=== PATIENT | female | born 1950 | race Caucasian/White ===

== ENCOUNTER 2018-10-15 18:48 | Observation (INO) | payer OTHER ==
--- NOTE | 2018-10-15 19:28 | EDPHY ---
H & P Stated Complaint: c/o SOB/HTN x 3 days - arrived Friday from [place] Time Seen by Provider: 10/15/18 18:54 HPI/ROS: HPI The patient presents with shortness of breath which she feels most prominently upon exertion for the last 3 days, upon arriving to [place] from [place]. The patient has had dyspnea on exertion over the last several weeks which has been mild though it became worse when she traveled to [place] about 4 days ago. She noticed previously then when she went up a flight of stairs she was more tired than usual. About 1 week ago she saw her primary care doctor in [place]. She had basic laboratory testing done and was diagnosed with iron deficiency anemia. She was told to be on iron supplementation. She is not sure why she is iron deficient. She does not have any vaginal bleeding, dark or bloody stools. She had a normal colonoscopy in June of 2017 Over the last 3 days she has noticed dyspnea on exertion when simply walking across a room. She does not have any shortness of breath while sleeping. She is able to lie flat at night. She does not have any lower extremity edema. She does not have any chest pain, cough. She has no prior history of similar outside of this episode. She has been checking her blood pressure and has noticed that she is getting elevated readings with systolic of about 180 for the last 2-3 days. She takes metoprolol daily and clonidine as needed. She has been taking both of these. She does note that when she takes clonidine her blood pressure improves.. REVIEW OF SYSTEMS 10 systems were reviewed and negative with the exception of the elements mentioned in the history of present illness. PMHx: Hypertension, recent diagnosis of iron deficiency anemia, etiology unclear Soc Hx: Visiting from [place], lives in [place] primarily though comes to [place] frequently because her daughter lives here and eventually she will move here PHYSICAL General Appearance: Alert, no distress Eyes: Pupils equal and round no pallor or injection ENT, Mouth: Mucous membranes moist Respiratory: There are no retractions, lungs are clear to auscultation Cardiovascular: Regular rate and rhythm Gastrointestinal: Abdomen is soft and non-tender, no masses, bowel sounds normal Neurological: A&O, moves all extremities Skin: Warm and dry, no rashes Musculoskeletal: Neck is supple non tender Extremities: symmetrical, full range of motion Psychiatric: Patient is oriented X 3, there is no agitation Source: Patient Exam Limitations: No limitations - Personal History Current Tetanus Diphtheria and Acellular Pertussis (TDAP): Yes - Medical/Surgical History Hx Asthma: Yes Other PMH: HTN/TIA- 3yrs ago/ Hyperthyroid/Hyperlipids/ Hyst/ Bladder sling/ Hip surg/ Knee surg - Social History Smoking Status: Never smoked Constitutional: Initial Vital Signs Temperature (C) 36.6 C 10/15/18 18:56 Heart Rate 60 10/15/18 18:56 Respiratory Rate 18 10/15/18 18:56 Blood Pressure 145/45 H 10/15/18 18:56 O2 Sat (%) 93 10/15/18 18:56 O2 Delivery Mode Room Air Allergies/Adverse Reactions: No Known Allergies Allergy (Unverified 10/15/18 18:56) Home Medications: Medication Instructions Recorded Pt Does Not Know 10/15/18 Medical Decision Making - Diagnostics EKG Interpretation: EKG: Complete interpretation has been separately recorded in the [email or web address] archive. Summary impression: Normal sinus rhythm Imaging Results: Imaging Impressions Chest X-Ray 10/15/18 19:24 Impression: 1. Bronchitis and suspected underlying minimal interstitial lung disease. 2. Moderate hiatal hernia. Imaging: I viewed and interpreted images myself Differential Diagnosis: This is a 67-year-old female with hypertension, recent diagnosis of iron deficiency anemia about 1 week ago by her primary care doctor in [place], presents with 3 days of dyspnea on exertion. She does not have any chest pain, lower extremity edema, orthopnea, PND. She does not have any unilateral leg swelling, pleuritic chest pain. She does not have any cough or fever. She does not have any dizziness or lightheadedness. Here, blood pressure is elevated, remainder of exam is unremarkable. EKG shows no signs of ST segment elevation. Basic labs were checked. Patient was given a dose of clonidine. Differential diagnosis includes symptomatic anemia made worse by altitude, pulmonary embolism, CHF with acute decompensation, pneumonia, pneumothorax. In the emergency department, patient's blood pressure improved with clonidine. She had no symptoms at rest. Labs revealed microcytic anemia consistent with iron deficiency anemia. I discussed this with her and she believes a week ago when she had her blood work performed her hemoglobin was 8. This does not represent a significant drop. She denies any dark or bloody stools on repeat questioning. I have discussed these findings with her. Initially she was reluctant to be admitted to the hospital, however after speaking with her family she agrees. I have not ordered a type and cross yet as it will have to be sent to [facility] via manager flight and will likely be more efficient for this to be done once she arrives. I consulted with the hospitalist access control specialist Dr. Bustillo who accepts the patient for admission. The EMTALA form has been completed. - Data Points Laboratory Results: Laboratory Results 10/15/18 19:11 10/15/18 10/15/18 10/15/18 19:30 19:29 19:11 WBC 7.32 10^3/uL 10^3/uL (3.80-9.50) RBC 3.40 10^6/uL L 10^6/uL (4.18-5.33) Hgb 7.6 g/dL L g/dL (12.6-16.3) Hct 25.8 % L % (38.0-47.0) MCV 75.9 fL L fL (81.5-99.8) MCH 22.4 pg L pg (27.9-34.1) MCHC 29.5 g/dL L g/dL (32.4-36.7) RDW 20.1 % H % (11.5-15.2) Plt Count 376 10^3/uL 10^3/uL (150-400) MPV 10.9 fL fL (8.7-11.7) Neut % (Auto) 54.9 % % (39.3-74.2) Lymph % (Auto) 25.4 % % (15.0-45.0) [place] % (Auto) 10.9 % % (4.5-13.0) Eos % (Auto) 7.5 % % (0.6-7.6) Baso % (Auto) 1.0 % % (0.3-1.7) Nucleat RBC Rel Count 0.0 % % (0.0-0.2) Absolute Neuts (auto) 4.02 10^3/uL 10^3/uL (1.70-6.50) Absolute Lymphs (auto) 1.86 10^3/uL 10^3/uL (1.00-3.00) Absolute Monos (auto) 0.80 10^3/uL 10^3/uL (0.30-0.80) Absolute Eos (auto) 0.55 10^3/uL H 10^3/uL (0.03-0.40) Absolute Basos (auto) 0.07 10^3/uL 10^3/uL (0.02-0.10) Absolute Nucleated RBC 0.00 10^3/uL 10^3/uL (0-0.01) Immature Gran % 0.3 % % (0.0-1.1) Immature Gran # 0.02 10^3/uL 10^3/uL (0.00-0.10) POC Sodium 142 mEq/L mEq/L (135-145) POC Potassium 3.9 mEq/L mEq/L (3.3-5.0) POC Chloride 110.0 mEq/L mEq/L (97-110) POC Total CO2 24 mEq/L mEq/L (22-31) POC BUN 14 mg/dL mg/dL (7-23) POC Creatinine 1.0 mg/dL mg/dL (0.6-1.0) POC Glucose 87 mg/dL mg/dL (70-100) POC Calcium 9.2 mg/dL mg/dL (8.5-10.4) POC Total Bilirubin 0.4 mg/dL mg/dL (0.1-1.4) POC AST 30 IU/L IU/L (14-46) POC ALT 40 IU/L IU/L (9-52) POC Alk Phosphatase 102 IU/L IU/L (38-126) POC Troponin I 0.01 ng/mL ng/mL (0.00-0.08) NT-Pro-B Natriuret Pep POC Total Protein 6.1 g/dL L g/dL (6.3-8.2) POC Albumin 3.6 g/dL g/dL (3.5-5.0) 10/15/18 19:11 WBC RBC Hgb Hct MCV MCH MCHC RDW Plt Count MPV Neut % (Auto) Lymph % (Auto) [place] % (Auto) Eos % (Auto) Baso % (Auto) Nucleat RBC Rel Count Absolute Neuts (auto) Absolute Lymphs (auto) Absolute Monos (auto) Absolute Eos (auto) Absolute Basos (auto) Absolute Nucleated RBC Immature Gran % Immature Gran # POC Sodium POC Potassium POC Chloride POC Total CO2 POC BUN POC Creatinine POC Glucose POC Calcium POC Total Bilirubin POC AST POC ALT POC Alk Phosphatase POC Troponin I NT-Pro-B Natriuret Pep 425 pg/mL H pg/mL (0-125) POC Total Protein POC Albumin Medications Given: Discontinued Medications Clonidine (Catapres) 0.1 mg PO EDNOW ONE Stop: 10/15/18 19:29 Last Admin: 10/15/18 19:36 Dose: 0.1 mg Point of Care Test Results: Chemistry 10/15/18 10/15/18 19:30 19:29 POC Sodium 142 mEq/L mEq/L (135-145) POC Potassium 3.9 mEq/L mEq/L (3.3-5.0) POC Chloride 110.0 mEq/L mEq/L (97-110) POC Total CO2 24 mEq/L mEq/L (22-31) POC BUN 14 mg/dL mg/dL (7-23) POC Creatinine 1.0 mg/dL mg/dL (0.6-1.0) POC Glucose 87 mg/dL mg/dL (70-100) POC Calcium 9.2 mg/dL mg/dL (8.5-10.4) POC Total Bilirubin 0.4 mg/dL mg/dL (0.1-1.4) POC AST 30 IU/L IU/L (14-46) POC ALT 40 IU/L IU/L (9-52) POC Alk Phosphatase 102 IU/L IU/L (38-126) POC Troponin I 0.01 ng/mL ng/mL (0.00-0.08) POC Total Protein 6.1 g/dL L g/dL (6.3-8.2) POC Albumin 3.6 g/dL g/dL (3.5-5.0) D-Dimer D-Dimer Collection Date 10/15/18 D-Dimer Collection Time 19:19 D-Dimer (ng/ml) 178 Departure - Departure Disposition: [facility] Clinical Impression: Symptomatic anemia Condition: Fair Instructions: Iron Deficiency Anemia (ED)
[2018-10-15 20:13] LABS: PLATELET COUNT 376 10^3/uL (150-400)
[2018-10-15] MEDS ORDERED: ACETAMINOPHEN 325 MG TAB PO PRN (22:46)
[2018-10-15] MEDS ORDERED: LORazepam 0.5 MG TAB PO PRN (22:46)
[2018-10-15] MEDS ORDERED: ONDANSETRON 4 MG/2 ML VIAL IVP PRN (22:46)
[2018-10-15] MEDS ORDERED: ONDANSETRON DISINTEGRATING 4 MG TAB PO PRN (22:46)
[2018-10-15] MEDS ORDERED: diphenhydrAMINE 25 MG CAP PO PRN (22:46)
[2018-10-15] MEDS ORDERED: hydrALAZINE 10 MG TAB PO PRN (22:51)
[2018-10-15] MEDS ORDERED: NS 1,000 ML IV SCH (23:00)
--- NOTE | 2018-10-15 23:54 | PDGENHP ---
History and Physical - Chief Complaint dyspnea - History of Present Illness Source-patient provides history appears reliable. EMR was reviewed and case discussed with accepting hospitalist. HPI - is a very pleasant 67-year-old female with past medical history significant for HTN, hypothyroidism, HLD and a recent diagnosis of iron deficiency anemia who presents emergency department with complaints of significant dyspnea on exertion. Patient reports that she has been experiencing symptoms over the last several weeks. She is here visiting from [place]. She and her do have a home in his the [place] area as well as here in [place]. Patient reports that her PCP diagnosed with iron deficiency anemia and advised her to take iron supplementation on a daily basis with which patient has been taking intermittently. Patient denies any chest pain but she has had acutely worsened dyspnea on exertion since arrival to [place]. She reports that generally when she does visit takes a few days for her to acclimate however her dyspnea has been worse than ever. She states that she had a normal colonoscopy 2016. She denies any orthopnea, lower extremity edema or PND. Patient notes that she has had a normal echocardiogram within the last year. She has a positive family history for colon cancer (mother) but denies any observation of melena or hematochezia. Patient without any history of peptic ulcer disease and no abdominal pain. Patient without any recent illnesses. Additionally patient has been noting increasing blood pressures over the last several days since her arrival. She recently had her metoprolol changed to 50 mg twice daily which she was previously taking it daily. She also has clonidine available p.r.n. She denies any chest pain or palpitations. History Information - Allergies/Home Medication List Allergies/Adverse Reactions: No Known Allergies Allergy (Unverified 10/15/18 18:56) Home Medications: Aspirin 10/15/18 [Last Taken Unknown] Clonidine 10/15/18 [Last Taken Unknown] Metoprolol Succinate 10/15/18 [Last Taken Unknown] Synthroid 10/15/18 [Last Taken Unknown] Wellbutrin Sr 10/15/18 [Last Taken Unknown] Zoloft 50mg (*) 10/15/18 [Last Taken Unknown] I have personally reviewed and updated: family history, medical history, social history, surgical history - Past Medical History Additional medical history: Iron deficiency anemia. HLD. HTN. History TIA 3 years ago. Hypothyroidism on levothyroxine. - Surgical History Additional surgical history: Hysterectomy with BSO and bladder sling. Right hip tendon repair. Left knee arthroscopy. Colonoscopy 2017 reported normal. - Family History Additional family history: Colon cancer - mother was diagnosed age 86 now . No family history of anemia or blood dyscrasias. - Social History Smoking Status: Never smoked Alcohol Use: None Drug Use: None Additional social history: Patient is and lives with her most of the time in [place] however they do have a home here in [place]. Their daughter lives locally and patient has friends with whom she is currently visiting. Cor status is limited patient does not want compressions or intubation but amenable to shock and IV medications. Review of Systems Review of Systems: ROS: 10pt was reviewed & negative except for what was stated in HPI & below Constitutional: Reports: no symptoms EENMT: Reports: no symptoms Cardiac: Denies: chest pain, edema, palpitations Respiratory: Reports: shortness of breath (Dyspnea on exertion). Denies: cough , orthopnea Gastrointestinal: Reports: no symptoms. Denies: black stools, rectal bleeding Genitourinary: Reports: no symptoms Muscolosketal: Reports: no symptoms Skin: Reports: no symptoms Neurological: Reports: no symptoms Hematologic/Lymphatic: Reports: anemia. Denies: easy bleeding, easy bruising Physical Exam Physical Exam: Selected Entries 10/15/18 18:56 Blood Pressure Automatic Method Heart Rate 60 Respiratory 18 Rate O2 Sat (%) 93 Temperature (C) 36.6 C Blood Pressure 145/45 H Mean Arterial 78 Pressure (MAP) O2 Delivery Room Air Mode Temperature Oral Source Temp Pulse Resp BP Pulse Ox 36.4 C 58 L 16 153/86 H 93 10/15/18 22:26 10/15/18 22:26 10/15/18 22:26 10/15/18 22:26 10/15/18 22:26 Constitutional: no apparent distress, obese, other (NAD. Pleasant adult female is lying quietly in bed. Appears pale.), No chronically ill appearing Eyes: PERRL, anicteric sclera, EOMI, No scleral injection Ears, Nose, Mouth, Throat: moist mucous membranes, other (No nasal discharge. No thyromegaly.), No poor dentition Cardiovascular: regular rate and rhythym, no murmur, rub, or gallop, pulses symmetric bilaterally, edema (2+ pitting edema on lower extremities bilaterally. No edema in the feet.) Peripheral Pulses: 2+: dorsalis-pedis (R), dorsalis-pedis (L) Respiratory: no respiratory distress, no rales or rhonchi, clear to auscultation , inspiratory crackles (Occasional crackle Bibasilarly.), No expiratory wheeze , No respiratory distress Gastrointestinal: normoactive bowel sounds, soft, non-tender abdomen, other ( Obese abdomen), No hepatosplenomegally, No distension Genitourinary: no bladder tenderness, No houser in urethra Skin: warm, no rashes or abrasions, other ([place]) Musculoskeletal: full muscle strength, other (Moves all extremities), No generalized weakness Neurologic: AAOx3, sensation intact bilaterally, other (Grossly nonfocal exam.) , No facial droop Psychiatric: interacting appropriately, not anxious, not encephalopathic, thought process linear Lymph, Heme, Immunologic: No ecchymoses, No petechiae Lab Data & Imaging Review 10/15/18 19:11 WBC 7.32 10^3/uL (3.80-9.50) 10/15/18 19:11 RBC 3.40 10^6/uL (4.18-5.33) L 10/15/18 19:11 Hgb 7.6 g/dL (12.6-16.3) L 10/15/18 19:11 Hct 25.8 % (38.0-47.0) L 10/15/18 19:11 MCV 75.9 fL (81.5-99.8) L 10/15/18 19:11 MCH 22.4 pg (27.9-34.1) L 10/15/18 19:11 MCHC 29.5 g/dL (32.4-36.7) L 10/15/18 19:11 RDW 20.1 % (11.5-15.2) H 10/15/18 19:11 Plt Count 376 10^3/uL (150-400) 10/15/18 19:11 MPV 10.9 fL (8.7-11.7) 10/15/18 19:11 Neut % (Auto) 54.9 % (39.3-74.2) 10/15/18 19:11 Lymph % (Auto) 25.4 % (15.0-45.0) 10/15/18 19:11 Bee % (Auto) 10.9 % (4.5-13.0) 10/15/18 19:11 Eos % (Auto) 7.5 % (0.6-7.6) 10/15/18 19:11 Baso % (Auto) 1.0 % (0.3-1.7) 10/15/18 19:11 Nucleat RBC Rel Count 0.0 % (0.0-0.2) 10/15/18 19:11 Absolute Neuts (auto) 4.02 10^3/uL (1.70-6.50) 10/15/18 19:11 Absolute Lymphs (auto) 1.86 10^3/uL (1.00-3.00) 10/15/18 19:11 Absolute Monos (auto) 0.80 10^3/uL (0.30-0.80) 10/15/18 19:11 Absolute Eos (auto) 0.55 10^3/uL (0.03-0.40) H 10/15/18 19:11 Absolute Basos (auto) 0.07 10^3/uL (0.02-0.10) 10/15/18 19:11 Absolute Nucleated RBC 0.00 10^3/uL (0-0.01) 10/15/18 19:11 Immature Gran % 0.3 % (0.0-1.1) 10/15/18 19:11 Immature Gran # 0.02 10^3/uL (0.00-0.10) 10/15/18 19:11 POC Sodium 142 mEq/L (135-145) 10/15/18 19:30 POC Potassium 3.9 mEq/L (3.3-5.0) 10/15/18 19:30 POC Chloride 110.0 mEq/L (97-110) 10/15/18 19:30 POC Total CO2 24 mEq/L (22-31) 10/15/18 19:30 POC BUN 14 mg/dL (7-23) 10/15/18 19:30 POC Creatinine 1.0 mg/dL (0.6-1.0) 10/15/18 19:30 POC Glucose 87 mg/dL (70-100) 10/15/18 19:30 POC Calcium 9.2 mg/dL (8.5-10.4) 10/15/18 19:30 POC Total Bilirubin 0.4 mg/dL (0.1-1.4) 10/15/18 19:30 POC AST 30 IU/L (14-46) 10/15/18 19:30 POC ALT 40 IU/L (9-52) 10/15/18 19:30 POC Alk Phosphatase 102 IU/L (38-126) 10/15/18 19:30 POC Troponin I 0.01 ng/mL (0.00-0.08) 10/15/18 19:29 NT-Pro-B Natriuret Pep 425 pg/mL (0-125) H 10/15/18 19:11 POC Total Protein 6.1 g/dL (6.3-8.2) L 10/15/18 19:30 POC Albumin 3.6 g/dL (3.5-5.0) 10/15/18 19:30 Imaging Review: PA and Lateral Chest Indication: Dyspnea on exertion. Comparison: None Findings: Lungs have diffuse moderate peribronchial thickening and minimal additional pattern in the lower lung zones. Streaky linear atelectasis present in bilateral bases. Heart is minimally enlarged. No pneumothorax, airspace consolidation or effusion. Moderate hiatal hernia overlies the heart. Upper abdomen otherwise negative. Impression: 1. Bronchitis and suspected underlying minimal interstitial lung disease. 2. Moderate hiatal hernia. Dictated By: Edilson Juarez MD Visualized and Interpreted Chest x-ray results: Yes Visualized and Interpreted EKG results: Yes EKG Interpretation: Positive for: normal sinsus rhythm EKG additional interpertation: NSR in the 50s. No acute ST changes. QTC 432. Assessment & Plan Assessment: This a very pleasant 67-year-old female with past medical history significant for HTN, hypothyroidism, HLD and a recent diagnosis of iron deficiency anemia who presents emergency department with complaints of significant dyspnea on exertion. Dyspnea - secondary to anemia. Patient without any evidence of acute CHF or pneumonia. She does have some evidence of interstitial changes bibasilarly and atelectasis. She is without any hypoxia but will monitor overnight with a pulse ox. Additional anemia workup as noted below. Additionally patient reports that she had a normal echocardiogram within the past year and will try to pull up her online records for additional review. Symptomatic anemia (Acute) - patient with a microcytic anemia. She reports she was diagnosed with iron deficiency prior to her arrival in [place] by her PCP but has had worsening of her symptoms since arrival to [facility] in [place]. Will plan to complete additional anemia laboratory studies as well as the occult stool. Patient reports a normal colonoscopy in 2017. She has not had any abdominal discomfort, will check occult stool. Patient vital signs at this time are acceptable given her anemia. Benign essential hypertension - patient with the elevated blood pressure she did receive clonidine in the emergency department before arrival. Will plan to resume patient's metoprolol in January clonidine available p.r.n. Hypothyroid - check thyroid studies. Resume replacement. HLD - resume patient's statin when med rec completed. FEN - saline lock IV as patient is tolerating p.o. The will avoid dilutional effect. As noted patient's blood pressures are elevated. Electrolytes acceptable continue monitor. Diet as tolerated. PPX- SCDs. Holding anticoagulation in setting of anemia. Cor status-limited. Patient does not want compressions or intubation but amenable to IV medications and shock if needed. Disposition-patient admitted to observation status on the med surge floor pending laboratory studies.
[2018-10-16 05:02] LABS: PLATELET COUNT 354 10^3/uL (150-400)
--- NOTE | 2018-10-16 09:37 | ASMTCMCOM ---
CM Note CM Note Notes: Pt is a 67 y/o female admitted for dyspnea. Pt has a home here in [place]. Pt lives half of the time w/ her in [place]. Pt typically has a difficult time acclimating to the elevation. Pt has an EKG ordered. No therapies ordered at this time. Pt should most likely be independent. CM available for changes. Plan: Independent Date Signed: 10/16/2018 09:36 AM Electronically Signed By:HARJIT Michaels
[2018-10-16] MEDS ORDERED: SODIUM FERRIC GLUCONAT/SUCROSE 125 MG in NS 100 ML IV ONE (11:25)
[2018-10-16 11:41] VITALS: BP 173/73
[2018-10-16] MEDS ORDERED: NON-FORMULARY NEW DRUG (Meloxicam [Meloxicam] 15 MG) PO PRN (12:48)
--- NOTE | 2018-10-16 13:08 | GDS ---
DISCHARGE DIAGNOSES: 1. Iron deficiency anemia. 2. Dyspnea. 3. Benign essential hypertension. 4. Hypothyroidism. PHYSICAL EXAM: GENERAL: The patient is alert. VITAL SIGNS: Afebrile at 36.6. Pulse is 61. Respi ratory rate is 18. Blood pressure is 173/73. She is saturating 91% on room air. I have seen, evalu ated the patient on the day of discharge. HOSPITAL COURSE: Patient is a 67-year-old female who presents to the hospital after complaints of sh ortness of breath. She was evaluated and diagnosed with: 1. Iron deficiency anemia. This is not a new diagnosis for this patient. She is from [place] and h as been working up her iron deficiency anemia at home with her primary care provider. She has been p laced on supplemental iron and has had a colonoscopy in the last 18 months. She has no signs of acti ve bleeding at this time. She will receive IV iron infusion and will return to her primary care [facility] in [place] for further management and evaluation. I have offered the patient a blood transfusio n as well as further workup with a sewing line baler while here in the hospital. She wishes to refr ain from this and follow up at home when she returns to [place]. 2. Dyspnea. This is in the setting of anemia and being at altitude. The patient understands this. 3. Benign essential hypertension. She will continue previously prescribed antihypertensive medicati ons and understands that this is potentially a component of her iron deficiency anemia. DISPOSITION: She will be discharged after IV iron infusion. FOLLOWUP: Will be with her primary care provider in [place]. I have also recommended that she have hemoglobin and hematocrit checked on 10/19/2018, to assure stability. I am instructing her to return to the emergency room if her shortness of breath should become worse or she develops other potential complications or signs of bleeding. She understands this and is in agreement with this plan. DISCHARGE MEDICATIONS: Please refer to EMR form. I have provided the patient a prescription for slo w-release iron prior to disposition. /[id number]/MODL
[2018-10-16] MEDS ORDERED: PNEUMOC 13-VAL CONJ-DIP CRM/PF 0.5 ML SYR (PREVNAR 13) IM ONE (13:42)
[2018-10-16] MEDS ORDERED: METOPROLOL SUCCINATE XR 50 MG TAB PO SCH (21:00)
--- NOTE | 2018-10-17 00:13 | CPEKG ---
Test Reason : OPEN Blood Pressure : / mmHG Vent. Rate : 056 BPM Atrial Rate : 056 BPM P-R Int : 194 ms QRS Dur : 101 ms QT Int : 447 ms P-R-T Axes : 060 015 036 degrees QTc Int : 432 ms Sinus rhythm Probable left atrial enlargement Confirmed by Jaqui Guerra ([id number]) on 10/17/2018 12:12:33 AM Referred By: Jaqui Guerra Confirmed By:Jaqui Guerar
[2018-10-17] MEDS ORDERED: LEVOTHYROXINE 112 MCG TAB PO SCH (06:00)
[2018-10-17] MEDS ORDERED: SERTRALINE HCL 100 MG TAB PO SCH (09:00)
[2018-10-17] MEDS ORDERED: buPROPion XL 150 MG TAB PO SCH (09:00)
[2018-10-17] MEDS ORDERED: LIOTHYRONINE SODIUM 5 MCG TAB PO SCH (09:00)
[2018-10-17] MEDS ORDERED: ASPIRIN 81 MG CHEWABLE TAB PO SCH (09:00)
== END 2018-10-16 14:31 | disposition home or self-care (01) ==
LOC: CED 18:48 → CEDHOLD 20:46 → INTOOBSV 20:46 → F3N 22:15
PROVIDERS: ADMIT Internal Medicine; ATTEND Internal Medicine
DX: D50.9 Iron deficiency anemia, unspecified (principal); R06.00 Dyspnea, unspecified; I10 Essential (primary) hypertension; E78.5 Hyperlipidemia, unspecified; K44.9 Diaphragmatic hernia without obstruction or gangrene; E03.9 Hypothyroidism, unspecified; Z23 Encounter for immunization
CPT/HCPCS: 71046; 90670; 93005; G0009; G0378; J2916; 80053-ER; 83010-90; 84481-90; 84484-ER; 96374-ER

== ENCOUNTER 2018-10-17 12:40 | Emergency (ER) | payer OTHER ==
[2018-10-17] MEDS ORDERED: NS 500 ML IV ONE (13:23)
[2018-10-17 13:40] LABS: PLATELET COUNT 431 10^3/uL (150-400)
[2018-10-17] MEDS ORDERED: IOPAMIDOL (ISOVUE 370) 100 ML BTL IV ONE (13:58)
--- NOTE | 2018-10-17 14:01 | EDPHY ---
H & P Time Seen by Provider: 10/17/18 13:11 HPI/ROS: HPI Fatigue, shortness of breath with exertion, anemia. 67-year-old female by private vehicle. She is from [place]. She is visiting a friend here is in the hospital currently. She was admitted to our hospital the day before yesterday and treated for iron deficiency anemia. She was discharged yesterday with a hemoglobin of 7.3. She has been put on iron supplementation regiment. She states that she felt fatigued this morning but felt overall better. She came to the hospital to visit her friend. She was walking up some stairs and became very short of breath and lightheaded while doing so. She reports that the shortness of breath and continued for awhile with lightheadedness after she had sat down. She decided to come back down to the emergency department to be evaluated. No associated chest pain. She has not had a cough. No fever. ROS: Constitutional: No fever, no chills. As above. Eyes: No discharge. No changes in vision. ENT: No sore throat. No nasal congestion or rhinorrhea. Respiratory: No cough. As above. Cardiac: No chest pain, no palpitations. Gastrointestinal: No abdominal pain, no vomiting, no diarrhea. Genitourinary: No hematuria. No dysuria or increased frequency with urination. Musculoskeletal: No back pain. No neck pain. No myalgias or arthralgias. Skin: No rashes. Neurological: No headache. No focal weakness or altered sensation. Past medical history: Hypertension, she takes metoprolol and clonidine. Hypothyroid, iron deficiency anemia. She has a primary care physician in [place] where she is from as well as in [place]. Social history: She is visiting from [place]. Her who is an attorney at law and represents physicians is currently in [place]. Nonsmoker. No alcohol. Physical Exam: General Appearance: Alert, no distress. This patient is responding to questions appropriately and in full sentences. This patient appears well- hydrated and well-nourished. Eyes: Pupils equal and round no pallor or injection. No lid edema, erythema or injection. Respiratory: There are no retractions, lungs are clear to auscultation with good air movement bilaterally. Cardiovascular: Regular rate and rhythm. No murmur. Gastrointestinal: Abdomen is soft and nontender, no masses, bowel sounds normal. No focal tenderness at McBurney's point. No Garcia sign. Neurological: Motor sensory function is grossly intact. Cranial nerves are normal. Gait is normal. Skin: Warm and dry, no rashes. Musculoskeletal: Neck is supple and nontender. Extremities are symmetrical. All joints range without pain or impingement. Psychiatric: No agitation. No depression. Database: EKG: EKG time is 1:36 p.m.; EKG shows a narrow complex normal sinus bradycardia with a ventricular rate of 53. Probable left atrial enlargement. The [place], QRS, QT intervals are within normal limits. There are no ST-T wave changes indicative of ischemic or injury pattern. No evidence of right heart strain. Interpreted by me. Imaging: CT angiogram of chest: Her heart is borderline enlarged. No pulmonary embolism. No dissection process. Otherwise a normal study. Results were discussed with staff radiologist Dr. Gonzalo Harris. Procedures: Emergency department course: Triage vital signs reviewed. She is mildly bradycardic with a heart rate of 55. She is on a beta-nura. Triage vital signs are otherwise unremarkable. IV was placed. She was placed on a beater engineer helper. She was started on IV normal saline with 500 cc to be given over the next 1 hr. EKG was obtained and reviewed by myself. I reviewed her medical records from her recent admission to the hospital. Her TSH was within normal limits. Her BNP was in the 400s. Troponin in the emergency department prior to admission was negative. Hemoglobin on discharge yesterday was 7.3. She was not investigated for pulmonary embolism. CT angiogram will be obtained. Patient and her consent. 3:20 p.m., the patient was re-evaluated, she is resting comfortably at this time. Vital signs were reviewed. She is moderately hypertensive. Pulse oximetry on room air is 94%. I discussed the results of her emergency department workup and her CT scan of her chest in detail with her and her daughter who is in the room at this time. Her hemoglobin today is 8.6, trending in the right direction. I did discuss admission for observation. She does not want to do this. She does feel comfortable going home. I feel this is reasonable. She can easily return to the emergency department if her condition worsens. I explained to her that I did not want her to engage in any strenuous physical activity. She is to continue her iron supplements. I also discussed the possible effect of the altitude in [place] being that she is from [facility]. She is to follow up with her primary care physician when she returns home to [place]. Return to emergency department precautions were thoroughly reviewed. All of her questions were answered. She was discharged in good condition with her daughter. Differential Diagnosis: The differential diagnosis on this patient includes but is not limited to iron deficiency anemia, bradycardia secondary to beta-nura, affects of high altitude. Thyroid disorder, pulmonary embolism, acute coronary syndrome, congestive heart failure, pericardial effusion unlikely. This represents a partial list of diagnoses considered. These considerations are based on history , physical exam, past history, reassessment and diagnostic testing. Smoking Status: Never smoked Constitutional: Initial Vital Signs Temperature (C) 36.7 C 10/17/18 12:52 Heart Rate 55 L 10/17/18 12:52 Respiratory Rate 16 10/17/18 12:52 Blood Pressure 136/58 H 10/17/18 12:52 O2 Sat (%) 93 10/17/18 12:52 O2 Delivery Mode Room Air Allergies/Adverse Reactions: No Known Allergies Allergy (Verified 10/17/18 12:55) Home Medications: Medication Instructions Recorded Aspirin [Aspirin 81mg (*)] 81 mg PO DAILY 10/15/18 Levothyroxine [Synthroid 112 mcg 56 mcg PO DAILY06 10/15/18 (*)] Metoprolol Succinate Xr [Toprol Xl 50 mg PO BID 10/15/18 50 mg (*)] Sertraline HCl [Zoloft 100mg (*)] 100 mg PO DAILY 10/15/18 buPROPion XL [Wellbutrin 150mg XL] 150 mg PO DAILY 10/15/18 clonIDINE [Catapres (*)] 0.1 mg PO BID PRN 10/15/18 Acetaminophen [Tylenol 325mg (*)] 650 mg PO Q4HRS PRN tab 10/16/18 Ferrous Sulfate [Slow Fe] 160 mg PO TID #60 tab 10/16/18 Liothyronine T3 7.5mcg Compounded 1 cap PO DAILY 10/16/18 Meloxicam 15 mg PO DAILY PRN 10/16/18 Medical Decision Making - Diagnostics Imaging Results: Imaging Impressions Chest/Thorax CTA 10/17/18 13:50 Impression: 1. No evidence of pulmonary embolic disease. 2. Borderline cardiac enlargement without pulmonary edema. 3. See above report for additional findings. Results called and discussed with Francoise Dwyer MD on 10/17/2018 at 15: 09. - Data Points Laboratory Results: Laboratory Results 10/17/18 13:26 10/17/18 13:26 10/17/18 10/17/18 10/17/18 13:54 13:26 13:26 WBC 9.29 10^3/uL 10^3/uL (3.80-9.50) RBC 3.92 10^6/uL L 10^6/uL (4.18-5.33) Hgb 8.6 g/dL L g/dL (12.6-16.3) Hct 29.9 % L % (38.0-47.0) MCV 76.3 fL L fL (81.5-99.8) MCH 21.9 pg L pg (27.9-34.1) MCHC 28.8 g/dL L g/dL (32.4-36.7) RDW 20.4 % H % (11.5-15.2) Plt Count 431 10^3/uL H 10^3/uL (150-400) MPV 10.7 fL fL (8.7-11.7) Neut % (Auto) 64.1 % % (39.3-74.2) Lymph % (Auto) 19.4 % % (15.0-45.0) [place] % (Auto) 9.8 % % (4.5-13.0) Eos % (Auto) 5.7 % % (0.6-7.6) Baso % (Auto) 0.8 % % (0.3-1.7) Nucleat RBC Rel Count 0.0 % % (0.0-0.2) Absolute Neuts (auto) 5.96 10^3/uL 10^3/uL (1.70-6.50) Absolute Lymphs (auto) 1.80 10^3/uL 10^3/uL (1.00-3.00) Absolute Monos (auto) 0.91 10^3/uL H 10^3/uL (0.30-0.80) Absolute Eos (auto) 0.53 10^3/uL H 10^3/uL (0.03-0.40) Absolute Basos (auto) 0.07 10^3/uL 10^3/uL (0.02-0.10) Absolute Nucleated RBC 0.00 10^3/uL 10^3/uL (0-0.01) Immature Gran % 0.2 % % (0.0-1.1) Immature Gran # 0.02 10^3/uL 10^3/uL (0.00-0.10) Platelet Estimate INCREASED H (ADEQ) Polychromasia 1+ H Hypochromasia 1+ H Microcytic Cells 1+ H Oval Macrocytes 1+ H Elliptocytes 1+ H Sodium 141 mEq/L mEq/L (135-145) Potassium 4.4 mEq/L mEq/L (3.5-5.2) Chloride 108 mEq/L mEq/L (97-110) Carbon Dioxide 24 mEq/l mEq/l (22-31) Anion Gap 9 mEq/L mEq/L (6-14) BUN 16 mg/dL mg/dL (7-23) Creatinine 0.9 mg/dL mg/dL (0.6-1.0) Estimated GFR > 60 Glucose 77 mg/dL mg/dL (70-100) Calcium 9.6 mg/dL mg/dL (8.5-10.4) POC Troponin I 0.00 ng/mL ng/mL (0.00-0.08) NT-Pro-B Natriuret Pep 10/17/18 13:25 WBC RBC Hgb Hct MCV MCH MCHC RDW Plt Count MPV Neut % (Auto) Lymph % (Auto) [place] % (Auto) Eos % (Auto) Baso % (Auto) Nucleat RBC Rel Count Absolute Neuts (auto) Absolute Lymphs (auto) Absolute Monos (auto) Absolute Eos (auto) Absolute Basos (auto) Absolute Nucleated RBC Immature Gran % Immature Gran # Platelet Estimate Polychromasia Hypochromasia Microcytic Cells Oval Macrocytes Elliptocytes Sodium Potassium Chloride Carbon Dioxide Anion Gap BUN Creatinine Estimated GFR Glucose Calcium POC Troponin I NT-Pro-B Natriuret Pep 576 pg/mL H pg/mL (0-125) Medications Given: Discontinued Medications Sodium Chloride (Ns) 500 mls @ 1,000 mls/hr IV EDNOW ONE PRN Reason: Protocol Stop: 10/17/18 13:52 Last Admin: 10/17/18 13:33 Dose: 500 mls Point of Care Test Results: Chemistry 10/17/18 13:54 POC Troponin I 0.00 ng/mL ng/mL (0.00-0.08) Departure - Departure Disposition: Home, Routine, Self-Care Clinical Impression: Dyspnea, Iron deficiency anemia, Lightheaded Condition: Good Instructions: Dyspnea (ED), Lightheadedness (ED) Additional Instructions: Read and follow provided instructions. Follow-up with your primary care physician on on Friday or Friday of this week for re-evaluation. Do not engage in any strenuous physical activity. Take your iron supplementation medications as prescribed. Most important, return to the emergency department for worsening symptoms, worsening shortness of breath, lightheadedness, palpitations, chest pain or other serious concerns. Referrals: Sarah Enamorado MD [Primary Care Provider] - As per Instructions
[2018-10-17 15:33] VITALS: BP 154/74
--- NOTE | 2018-10-17 21:01 | CPEKG ---
Test Reason : OPEN Blood Pressure : / mmHG Vent. Rate : 053 BPM Atrial Rate : 053 BPM P-R Int : 192 ms QRS Dur : 101 ms QT Int : 471 ms P-R-T Axes : 057 014 045 degrees QTc Int : 443 ms Sinus rhythm Probable left atrial enlargement Confirmed by Francoise Dwyer ([id number]) on 10/17/2018 9:00:54 PM Referred By: Francoise Dwyer Confirmed By:Francoise Dwyer
== END 2018-10-17 15:33 | disposition home or self-care (01) ==
DX: R06.00 Dyspnea, unspecified (principal); I10 Essential (primary) hypertension; Z79.899 Other long term (current) drug therapy
CPT/HCPCS: 71275; 93005; 99285; Q9967; 84484-ER